=== PATIENT | male | born 1965 | race Caucasian/White ===

== ENCOUNTER 2018-11-05 11:15 | Day surgery (SDC) | payer OTHER ==
[~2018-11-05] VITALS: Ht 167.6 cm; Wt 91.2 kg
[~2018-11-05 11:15] MED LIST: BUPIVACAINE/PF-EPI 0.5% 1:200K ONE; OMEP20TA62 PO; TAMS-11 PO
[2018-11-05 11:37] VITALS: BP 133/87
[2018-11-05] MEDS ORDERED: FENTANYL PF 250 MCG/5ML ONE (11:39)
[2018-11-05] MEDS ORDERED: MIDAZOLAM 1 MG/ML, 2ML ONE (11:39)
[2018-11-05] MEDS ORDERED: DEXAMETHASONE 4 MG/ML, 1ML ONE (11:41)
[2018-11-05] MEDS ORDERED: GLYCOPYRROLATE 0.2MG/1ML, 5ML ONE (11:41)
[2018-11-05] MEDS ORDERED: NEOSTIGMINE 1 MG/ML, 10ML ONE (11:41)
[2018-11-05] MEDS ORDERED: PROPOFOL 10 MG/ML, 20ML ONE (11:41)
[2018-11-05] MEDS ORDERED: LIDOCAINE-MPF 2% ,5ML ONE (11:41)
[2018-11-05] MEDS ORDERED: SUCCINYLCHOLINE 20 MG/ML, 10ML ONE (11:41)
[2018-11-05] MEDS ORDERED: ONDANSETRON 2MG/ML, 2ML ONE (11:41)
[2018-11-05] MEDS ORDERED: CEFAZOLIN 1,000 MG ONE (11:41)
[2018-11-05] MEDS ORDERED: ROCURONIUM 10MG/ML,5ML ONE (11:41)
[2018-11-05] MEDS ORDERED: COUGH SYRUP (11:42)
[2018-11-05] MEDS ORDERED: ACETAMINOPHEN 500 MG TABLET PO ONE (12:00)
[2018-11-05] MEDS ORDERED: SCOPOLAMINE PATCH, 1.5MG PATCH.TD72 TD ONE (12:00)
[2018-11-05] MEDS ORDERED: LACTATED RINGERS 1,000 ML IV SCH (12:05)
[2018-11-05] MEDS ORDERED: ONDANSETRON ODT 8 MG PO ONE (13:00)
[2018-11-05] MEDS ORDERED: GABAPENTIN 300 MG CAPSULE PO ONE (13:00)
[2018-11-05] MEDS ORDERED: HYDROmorphone 2 MG/ML, 1ML IVPush PRN (14:00)
[2018-11-05] MEDS ORDERED: OXYcodone 5 MG/5 ML ORAL.SOL UDC PO PRN (14:00)
[2018-11-05] MEDS ORDERED: FENTANYL PF 100 MCG/2ML IV PRN (14:00)
[2018-11-05] MEDS ORDERED: ONDANSETRON ODT 8 MG PO PRN (14:00)
[2018-11-05] MEDS ORDERED: MEPERIDINE/PF 25MG/0.5ML IVPush PRN (14:00)
[2018-11-05] MEDS ORDERED: PROMETHAZINE 25 MG/ML, 1ML IV PRN (14:00)
[2018-11-05] MEDS ORDERED: ONDANSETRON 2MG/ML, 2ML IV PRN (14:00)
[2018-11-05] MEDS ORDERED: BUPIVACAINE/PF-EPI 0.5% 1:200K ONE (14:19)
[2018-11-05] MEDS ORDERED: OXYcodone 5 MG/5 ML ORAL.SOL UDC ONE (15:22)
[2018-11-05] MEDS ORDERED: EPHEDRINE 50 MG/ML, 1ML ONE (15:57)
[2018-11-05] MEDS ORDERED: VASOPRESSIN 20 UNIT/ML, 1ML ONE (15:57)
== END 2018-11-05 17:20 | disposition home or self-care (01) ==
LOC: OUT 11:15
PROVIDERS: ATTEND Surgery
DX: K43.2 Incisional hernia without obstruction or gangrene (principal); F10.21 Alcohol dependence, in remission; K21.9 Gastro-esophageal reflux disease without esophagitis; Z98.890 Other specified postprocedural states
CPT/HCPCS: 49656; C1781; J0330; J0690; J1100; J2250; J2405; J2704; J2710; J3010; J3490; J7120; Q0162